=== PATIENT | female | born 1970 | race Caucasian/White ===

== ENCOUNTER 2018-03-05 13:59 | Emergency (ER) | payer SELFPAY ==
[~2018-03-05] VITALS: Ht 157.5 cm; Wt 93.0 kg
[~2018-03-05 13:59] MED LIST: DIPH50TA PO; HYDR1CRE TOP
[2018-03-05 14:23] VITALS: BP 113/64; PULSE 86; RESP 18; TEMP 98.1; O2SAT 96
[2018-03-05] MEDS ORDERED: ASPIRIN 325 MG TAB PO ONE (14:30)
[2018-03-05 14:40] LABS: AUTOMATED NEUTROPHIL # 7.2 TH/MM3 (1.8-7.7); BASOPHIL # 0.2 TH/MM3 (0-0.2); BASOPHIL % 2.1 % (0.0-2.0); EOSINOPHIL # 0.1 TH/MM3 (0-0.4); HEMATOCRIT 41.4 % (35.0-46.0); LYMPH % 23.2 % (9.0-44.0); LYMPHOCYTE # 2.5 TH/MM3 (1.0-4.8); MEAN CELL VOLUME 85.8 FL (80.0-100.0); MEAN CORPUSCULAR HGB CONC 33.9 % (32.0-36.0); MEAN PLATELET VOLUME 9.4 FL (7.0-11.0); MONO % 6.5 % (0.0-8.0); MONOCYTE # 0.7 TH/MM3 (0-0.9); NEUT % 67.2 % (16.0-70.0); PLATELET COUNT 226 TH/MM3 (150-450); RED BLOOD COUNT 4.82 MIL/MM3 (4.00-5.30); RED CELL DISTRIBUTION WIDTH 12.8 % (11.6-17.2); WHITE BLOOD COUNT 10.7 TH/MM3 (4.0-11.0)
[2018-03-05 14:41] LABS: CHLORIDE 107 MEQ/L (98-107); SODIUM (NA) 137 MEQ/L (136-145)
[2018-03-05 14:43] LABS: CALCIUM 9.4 MG/DL (8.5-10.1)
[2018-03-05 14:44] LABS: BICARBONATE 24.4 MEQ/L (21.0-32.0); BLOOD UREA NITROGEN 15 MG/DL (7-18); GLUCOSE,RANDOM 79 MG/DL (74-106)
[2018-03-05 14:46] VITALS: RESP 18; O2SAT 96
[2018-03-05 14:47] LABS: CREATININE 0.84 MG/DL (0.50-1.00); GLOMERULAR FILTRATION RATE 73 ML/MIN (>89); PROTHROMBIN TIME - PATIENT 10.1 SEC (9.8-11.6)
[2018-03-05 14:48] VITALS: BP_SYST 105; BP_SYST 96; BP_DIAS 64; BP_DIAS 66; PULSE 84
[2018-03-05 14:52] LABS: TROPONIN I LESS THAN 0.02 NG/ML (0.02-0.05)
--- NOTE | 2018-03-05 14:54 | PD ---
HPI Chief Complaint: Chest Pain Time Seen by Provider: 14:28 Travel History International Travel<30 days: No Contact w/Intl Traveler<30days: No Traveled to known affect area: No History of Present Illness HPI Patient presents with complaints of chest pain for 1-1/2 hours. Sharp in nature , initially started in her mid back and radiated to her left arm. Reports multiple episodes last approximately 20 minutes. The first occurred while yard sale shopping. Positive radiation down the left arm. Denies diabetes. Positive smoker. Positive family history for cardiac disease in her maternal grandmother and mother. Denies personal history of cardiac disease. Admits to diaphoresis and shortness of breath. Alleviated with rest. Aggravated with activity. Stress test 4 years ago without any findings. PFSH Past Medical History Asthma: No Autoimmune Disease: No Depression: Yes Heart Rhythm Problems: No Cardiac Catheterization: No Cardiovascular Problems: No High Cholesterol: No Chest Pain: Yes Congestive Heart Failure: No COPD: No Diabetes: No Diminished Hearing: No Hypertension: No Immunizations Current: No Myocardial Infarction: No Influenza Vaccination: No PNEUMOCCOCAL Vaccine (Year): 3 ?: Not : 3 Para: 3 Tubal Ligation: Yes Past Surgical History Abdominal Surgery: Yes (HERNIA REPAIR) Cholecystectomy: Yes (2000) Coronary Artery Bypass Graft: No Gynecologic Surgery: Yes Tonsillectomy: Yes Other Surgery: Yes (LIVER BIOPSIES- 2006) Family History Family Myocardial Infarction: Yes Social History Alcohol Use: No Tobacco Use: Yes (11/30 PPD) Substance Use: No Allergies-Medications (Allergen,Severity, Reaction): Coded Allergies: ibuprofen (Unverified Allergy, Severe, HIVES, 03/05/18) Reported Meds & Prescriptions Reported Meds & Active Scripts Active Review of Systems General / Constitutional: No: Fever Eyes: No: Visual changes HENT: No: Headaches Cardiovascular: Positive: Chest Pain or Discomfort Respiratory: No: Shortness of Breath Gastrointestinal: No: Abdominal Pain Genitourinary: No: Dysuria Musculoskeletal: No: Pain Skin: No Rash Neurologic: No: Weakness Psychiatric: No: Depression Endocrine: No: Polydipsia Hematologic/Lymphatic: No: Easy Bruising Physical Exam Narrative GENERAL: Well-nourished, well-developed patient. SKIN: Focused skin assessment warm/dry. HEAD: Normocephalic. EYES: No scleral icterus. No injection or drainage. NECK: Supple, trachea midline. No JVD or lymphadenopathy. Of note examination of the left trapezius region reveals reproducible pain with palpation, without any rash CARDIOVASCULAR: Regular rate and rhythm without murmurs, gallops, or rubs. RESPIRATORY: Breath sounds equal bilaterally. No accessory muscle use. GASTROINTESTINAL: Abdomen soft, non-tender, nondistended. MUSCULOSKELETAL: No cyanosis, or edema. BACK: Nontender without obvious deformity. No CVA tenderness. Data Data Last Documented VS Vital Signs Date Time Temp Pulse Resp B/P (MAP) Pulse Ox O2 Delivery O2 Flow Rate FiO2 03/05/18 16:57 67 16 108/71 (83) 97 Room Air 03/05/18 14:23 98.1 Orders Orders Electrocardiogram (03/05/18 14:19) Complete Blood Count With Diff (03/05/18 14:19) Basic Metabolic Panel (Bmp) (03/05/18 14:19) Ckmb (Isoenzyme) Profile (03/05/18 14:19) Troponin I (03/05/18 14:19) Iv Access Insert/Monitor (03/05/18 14:19) Ecg Monitoring (03/05/18 14:19) Oxygen Administration (03/05/18 14:19) Oximetry (03/05/18 14:19) Prothrombin Time / Inr (Pt) (03/05/18 14:19) Act Partial Throm Time (Ptt) (03/05/18 14:19) Ed Urine Pregnancytest Poc (03/05/18 14:19) Electrocardiogram (03/05/18 14:29) Bilateral Bp Monitoring (03/05/18 14:29) Aspirin (Aspirin) (03/05/18 14:30) Chest, Pa & Lat (03/05/18 14:29) D-Dimer (03/05/18 14:25) Hepatic Functional Panel (03/05/18 14:25) Magnesium (Mg) (03/05/18 14:25) Labs Laboratory Tests Test 03/05/18 14:25 White Blood Count 10.7 TH/MM3 Red Blood Count 4.82 MIL/MM3 Hemoglobin 14.0 GM/DL Hematocrit 41.4 % Mean Corpuscular Volume 85.8 FL Mean Corpuscular Hemoglobin 29.0 PG Mean Corpuscular Hemoglobin Concent 33.9 % Red Cell Distribution Width 12.8 % Platelet Count 226 TH/MM3 Mean Platelet Volume 9.4 FL Neutrophils (%) (Auto) 67.2 % Lymphocytes (%) (Auto) 23.2 % Monocytes (%) (Auto) 6.5 % Eosinophils (%) (Auto) 1.0 % Basophils (%) (Auto) 2.1 % Neutrophils # (Auto) 7.2 TH/MM3 Lymphocytes # (Auto) 2.5 TH/MM3 Monocytes # (Auto) 0.7 TH/MM3 Eosinophils # (Auto) 0.1 TH/MM3 Basophils # (Auto) 0.2 TH/MM3 CBC Comment DIFF FINAL Differential Comment Prothrombin Time 10.1 SEC Prothromb Time International Ratio 1.0 RATIO Activated Partial Thromboplast Time 24.6 SEC D-Dimer Quantitative (PE/DVT) 0.43 MG/L FEU Blood Urea Nitrogen 15 MG/DL Creatinine 0.84 MG/DL Random Glucose 79 MG/DL Total Protein 7.7 GM/DL Albumin 3.6 GM/DL Calcium Level 9.4 MG/DL Magnesium Level 2.0 MG/DL Alkaline Phosphatase 96 U/L Aspartate Amino Transf (AST/SGOT) 14 U/L Alanine Aminotransferase (ALT/SGPT) 14 U/L Total Bilirubin 0.2 MG/DL Direct Bilirubin LESS THAN 0.1 MG/DL Sodium Level 137 MEQ/L Potassium Level 3.9 MEQ/L Chloride Level 107 MEQ/L Carbon Dioxide Level 24.4 MEQ/L Anion Gap 6 MEQ/L Estimat Glomerular Filtration Rate 73 ML/MIN Indirect Bilirubin 0.1 MG/DL Total Creatine Kinase 58 U/L Troponin I LESS THAN 0.02 NG/ML MDM Medical Decision Making Medical Screen Exam Complete: Yes Emergency Medical Condition: Yes Differential Diagnosis Acute coronary syndrome, musculoskeletal pain, reflux Narrative Course Assessment and plan discussed with patient at bedside. EKG reveals sinus rhythm rate of 88. Cardiac enzymes are negative. Patient is pain-free when she is still. Offered patient further evaluation in the chest pain clinic, patient declined. Last 72 hours Impressions Chest X-Ray 03/05/18 2243 Signed Impressions: Service Date/Time: Wednesday, March 05, 2018 15:16 - CONCLUSION: Diffuse mild prominent interstitium. An underlying interstitial process could be considered. Adan Wilcox MD Diagnosis Primary Impression: Musculoskeletal pain Patient Instructions: General Instructions Additional Instructions: Encourage smoking cessation. Encouraged Tylenol, warm heat, gentle stretching and strengthening and massage. Muscle relaxer as needed. Encouraged to follow- up with PCP. Encouraged to return to the emergency room with any onset of new symptoms. Med/Other Pt SpecificInfo: Prescription(s) given Scripts Acetaminophen-Codeine (Tylenol-Codeine #3) 300-30 mg Tab 1 TAB PO Q4H Y for PAIN, #20 TAB 0 Refills Prov: Andrew Abdalla MD 03/05/18 Cyclobenzaprine (Flexeril) 10 Mg Tab 10 MG PO TID for Muscle Spasm, #15 TAB 0 Refills Prov: Andrew Abdalla MD 03/05/18 Disposition: 01 DISCHARGE HOME Condition: Good Andrew Abdalla MD Mar 05, 2018 14:54
[2018-03-05 15:04] LABS: ALBUMIN 3.6 GM/DL (3.4-5.0)
[2018-03-05 15:06] LABS: TOTAL BILIRUBIN ADULT 0.2 MG/DL (0.2-1.0); TOTAL PROTEIN 7.7 GM/DL (6.4-8.2)
[2018-03-05 15:07] LABS: ALKALINE PHOSPHATASE 96 U/L (45-117); ALT (GPT) 14 U/L (10-53); AST (GOT) 14 U/L (15-37); D-DIMER 0.43 MG/L FEU (0.00-0.50)
[2018-03-05 15:10] LABS: DIRECT BILIRUBIN ADULT LESS THAN 0.1 MG/DL (0.0-0.2); INDIRECT BILIRUBIN 0.1 MG/DL (0.0-0.8)
[2018-03-05 15:36] VITALS: BP 106/58; PULSE 74; RESP 18; O2SAT 95
--- NOTE | 2018-03-05 16:44 | RADRPT ---
EXAM DATE/TIME: 03/05/2018 15:16 [facility] COMPARISON: CT CERVICAL SPINE W/O CONTRAST, February 04, 2016, 13:57. CHEST SINGLE AP, June 18, 2016, 12:25. INDICATIONS : Chest pain MEDICAL HISTORY : None. SURGICAL HISTORY : Tonsillectomy. Cholecystectomy. Tubal ligation. Liver biopsy ENCOUNTER: Initial ACUITY: 1 day PAIN SCORE: 7/10 LOCATION: Bilateral chest FINDINGS: The heart size is normal. The lungs are free of focal consolidation. There is some prominence of the interstitium. No effusion is seen. The bony structures are intact. Clips are seen in the right upper quadrant. CONCLUSION: Diffuse mild prominent interstitium. An underlying interstitial process could be considered. Adan Wilcox MD on March 05, 2018 at 16:38 Board Certified Radiologist. This report was verified electronically.
[2018-03-05 16:57] VITALS: BP 108/71; PULSE 67; RESP 16; O2SAT 97
[2018-03-05] MEDS ORDERED: CYCL10TA PO (17:18)
[2018-03-05 17:19] VITALS: BP 103/62; PULSE 67; RESP 16; O2SAT 97
[2018-03-05] MEDS ORDERED: TYLETAB34 PO (17:20)
--- NOTE | 2018-03-06 17:09 | EKG ---
Date Performed: 03/05/2018 Time Performed: 14:10:18 PTAGE: 47 years EKG: Sinus rhythm POSSIBLE LEFT ATRIAL ENLARGEMENT POSSIBLE RIGHT VENTRICULAR CONDUCTION DELAY Since the previous trac ing, no significant change noted BORDERLINE ECG PREVIOUS TRACING : 06/18/2016 11.59 DOCTOR: Brown Verdugo Interpretating Date/Time 03/06/2018 17:08:04
== END 2018-03-05 17:34 | disposition home or self-care (01) ==
LOC: PHED 13:59
DX: M79.1 Myalgia (principal); R94.31 Abnormal electrocardiogram [ECG] [EKG]; F32.9 Major depressive disorder, single episode, unspecified; F17.210 Nicotine dependence, cigarettes, uncomplicated
CPT/HCPCS: 71046; 80048; 80076; 82550; 83735; 84484; 84703; 85025; 85379; 85610; 85730; 93005; 99285